=== PATIENT | male | born 1960 | race Caucasian/White ===

== ENCOUNTER → 2017-07-15 | Outpatient (CLI) | payer BC ==
--- NOTE | 2017-07-15 15:59 | Diagnostic Imaging Report ---
PROCEDURE:HAND THREE VIEWS BILATERAL INDICATION:Arthritis COMPARISON:None. FINDINGS:There are no fractures or dislocations. No bony erosions are seen. Ulnar styloids are intact. No soft tissue abnormality. CONCLUSION:Unremarkable bilateral hand series. Romain Arias D.O. Dictated by: Romain Arias D.O. on 07/15/2017 at 16:00 Electronically approved by: Romain Arias D.O. on 07/15/2017 at 16:00
--- NOTE | 2017-07-15 16:01 | Diagnostic Imaging Report ---
PROCEDURE:WRIST COMPLETE BILATERAL INDICATION:Arthritis COMPARISON:None. FINDINGS:There are no fractures seen. Subchondral cystic lucency of the navicular and lunate bone represent degenerative subchondral cysts. No bony erosions are seen. There is no evidence of carpal crowding. There is no cartilage calcification. CONCLUSION:Degenerative subchondral cysts. Romain Arias D.O. Dictated by: Romain Arias D.O. on 07/15/2017 at 16:03 Electronically approved by: Romain Arias D.O. on 07/15/2017 at 16:03
== END ==
LOC: RAD 14:05
PROVIDERS: ATTEND Student in an Organized Health Care Education/Training Program
DX: L40.50 Arthropathic psoriasis, unspecified (principal); Z79.899 Other long term (current) drug therapy